=== PATIENT | male | born 1960 | race Caucasian/White ===

== ENCOUNTER 2016-06-24 08:08 | Emergency (ER) | payer BC ==
[~2016-06-24] VITALS: Ht 167.6 cm; Wt 108.0 kg
[2016-06-24 08:15] VITALS: BP 160/85
[2016-06-24] MEDS ORDERED: FISH1000 PO (08:25)
[2016-06-24] MEDS ORDERED: MULT1TAB8 PO (08:25)
[2016-06-24] MEDS ORDERED: VIGA0.02 OD (08:25)
[2016-06-24] MEDS ORDERED: KEFL500C7 PO (08:25)
[2016-06-24] MEDS ORDERED: ASPI325T28 PO (08:25)
[2016-06-24] MEDS ORDERED: CEFTAROLINE FOSAMIL 600 MG in D5W MINI-BAG PLUS 50 ML IV ONE (09:00)
[2016-06-24 10:03] LABS: BASO # 0.1 K/mm3 (0.0-0.2); EOS # 0.4 K/mm3 (0.0-0.50); EOS % 5.8 % (0.0-3.0); LARGE UNSTAINED CELL # 0.2 K/mm3 (0.0-0.4); LARGE UNSTAINED CELL % 2.9 % (0.0-4.0); LYMPH # 3.2 K/mm3 (1.5-4.5); LYMPH % 40.1 % (24.0-44.0); MEAN CORPUSCULAR HEMOGLOBIN 30.6 pg (27.0-33.0); MEAN CORPUSCULAR HGB CONC 35.3 g/dl (32.0-36.5); MEAN CORPUSCULAR VOLUME 86.7 fl (80.0-96.0); MONO # 0.5 K/mm3 (0.0-0.8); MONO % 6.7 % (0.0-5.0); NEUTROPHILS # 3.3 K/mm3 (1.8-7.7); NEUTROPHILS % 43.6 % (36.0-66.0); PLATELET COUNT, AUTOMATED 217 k/mm3 (150-450); RED CELL DISTRIBUTION WIDTH 13.2 % (11.5-14.5); WHITE BLOOD COUNT 7.5 K/mm3 (4.0-10.0)
[2016-06-24 10:14] LABS: ANION GAP 10 MEQ/L (8-16); BLOOD UREA NITROGEN 18 MG/DL (7-18); CARBON DIOXIDE LEVEL 25 MEQ/L (21-32); CHLORIDE LEVEL 103 MEQ/L (98-107); CREATININE FOR GFR 0.87 MG/DL (0.70-1.30); GLOMERULAR FILTRATION RATE > 60.0 (>56); GLUCOSE, FASTING 133 MG/DL (70-105); POTASSIUM SERUM 4.3 MEQ/L (3.5-5.1); SODIUM LEVEL 138 MEQ/L (136-145)
[2016-06-24] MEDS ORDERED: CLEO300C2 PO (10:34)
[2016-06-24] MEDS ORDERED: CLINDAMYCIN 150 MG CAP PO ONE (10:45)
[2016-06-24] MEDS ORDERED: dexameTHASONE 20 MG/5 ML VIAL (J1100) IV ONE (10:45)
== END 2016-06-24 11:05 | disposition home or self-care (01) ==
LOC: M ED 09:40
DX: L03.213 Periorbital cellulitis (principal); H10.9 Unspecified conjunctivitis; Z88.0 Allergy status to penicillin; Z79.899 Other long term (current) drug therapy; Z79.82 Long term (current) use of aspirin; Z79.2 Long term (current) use of antibiotics
CPT/HCPCS: 36415; 80048; 83036; 85025; 86140; 87040; 96365; 96366; 96375; 99282; J1100

== ENCOUNTER → 2018-04-01 | Outpatient (REF) | payer BC ==
[~2018-04-01] MED LIST: ASPI-222 PO; CLEO300C2 PO; FISH1000 PO; KEFL500C17 PO; MULT1TAB8 PO; VIGA0.02 OD
== END ==
LOC: M LAB REF 14:55
PROVIDERS: ATTEND Ophthalmology
DX: B86 Scabies (principal)

== ENCOUNTER → 2018-04-22 | Outpatient (REF) | payer BC | LOC: M SFHCPLAZ 17:20 | PROVIDERS: ATTEND Dermatology | DX: L57.0 Actinic keratosis (principal) ==

== ENCOUNTER → 2022-09-11 | Outpatient (CLI) | payer BC ==
[~2022-09-11] MED LIST changes: -ASPI-222 PO; +ASPI-527 PO
[2022-09-11 10:28] LABS: BASO # 0.1 10^3/uL (0.0-0.2); BASO % 0.9 % (0.0-1.0); EOS # 0.3 10^3/uL (0.0-0.5); EOS % 4.7 % (0.0-3.0); HEMOGLOBIN 13.9 g/dl (13.5-17.5); LYMPH % 42.9 % (24.0-44.0); MEAN CORPUSCULAR HEMOGLOBIN 29.8 pg (27.0-33.0); MEAN CORPUSCULAR HGB CONC 34.8 g/dl (32.0-36.5); MEAN CORPUSCULAR VOLUME 85.7 fl (80.0-96.0); MONO # 0.9 10^3/uL (0.0-0.8); MONO % 12.6 % (2.0-8.0); NEUTROPHILS # 2.7 10^3/uL (1.5-8.5); NEUTROPHILS % 38.8 % (36.0-66.0); PLATELET COUNT, AUTOMATED 204 10^3/uL (150-450); RED BLOOD COUNT 4.67 10^6/uL (4.30-6.10)
[2022-09-11 11:27] LABS: HEMOGLOBIN A1c 5.5 % (4.0-6.0)
[2022-09-11 11:43] LABS: ALBUMIN 4.1 G/DL (3.2-5.2); ALKALINE PHOSPHATASE 85 U/L (46-116); ALT/SGPT 32 U/L (7.0-40); AST/SGOT 23 U/L (<34); BILIRUBIN,TOTAL 0.7 MG/DL (0.3-1.2); BLOOD UREA NITROGEN 22 MG/DL (9-23); CALCIUM LEVEL 9.6 MG/DL (8.3-10.6); CARBON DIOXIDE LEVEL 28 MMOL/L (20-31); CHLORIDE LEVEL 105 MMOL/L (98-107); CHOLESTEROL LEVEL 74 MG/DL (<200); CHOLESTEROL RISK RATIO 2.02 (<5); CREATININE FOR GFR 0.77 MG/DL (0.70-1.30); GLOMERULAR FILTRATION RATE > 60.0 (>49); GLUCOSE, FASTING 102 MG/DL (74-106); HDL CHOLESTEROL 36.6 MG/DL (>40); LDL CHOLESTEROL 24.4 MG/DL (<100); NON-HDL-C 37.4 MG/DL; POTASSIUM SERUM 4.4 MMOL/L (3.5-5.1); SODIUM LEVEL 140 MMOL/L (136-145); TOTAL PROTEIN 6.8 G/DL (5.7-8.2); TRIGLYCERIDES LEVEL 65 MG/DL (<150)
[2022-09-11 11:47] LABS: THYROID STIMULATING HORMONE 0.991 uIU/ML (0.55-4.78)
[2022-09-11 11:48] LABS: FREE T4 1.14 NG/DL (0.89-1.76)
== END ==
LOC: M WUC 08:06
PROVIDERS: ATTEND Family Medicine
DX: E11.59 Type 2 diabetes mellitus with other circulatory complications (principal)

== ENCOUNTER → 2022-09-11 | Outpatient (CLI) | payer BC ==
[2022-09-11 11:24] LABS: ALBUMIN 3.9 G/DL (3.2-5.2); BILIRUBIN,DIRECT 0.3 MG/DL (<0.4); BILIRUBIN,TOTAL 0.7 MG/DL (0.3-1.2); TOTAL PROTEIN 6.8 G/DL (5.7-8.2)
[2022-09-12 13:07] LABS: HEPATITIS C QUANTITATION HCV Not Detected IU/mL (.)
== END ==
LOC: M WUC 08:09
PROVIDERS: ATTEND Internal Medicine Infectious Disease
DX: B18.2 Chronic viral hepatitis C (principal)

== ENCOUNTER → 2023-06-12 | Outpatient (CLI) | payer BC ==
[~2023-06-12] MED LIST changes: +ASPI81TA26 PO; +B-12100010 PO; +BACTDSTA PO; +CEFU1TAB22 PO; +CLOP75TA99 PO; +METO1TAB87 PO; +PRED20TA PO; +REPA140I2 SUBQ; +SEMA0.257 SUBQ; +TOBROPO OS; +VITA400C83 PO
== END ==
LOC: M PLAIMG 14:53
PROVIDERS: ATTEND Family Medicine
DX: C40.21 Malignant neoplasm of long bones of right lower limb (principal)

== ENCOUNTER → 2023-06-14 | Outpatient (CLI) | payer BC ==
[2023-06-17 20:07] LABS: FREE KAPPA LIGHT CHAINS SERUM 26.1 mg/L (3.3-19.4); FREE LAMBDA LIGHT CHAINS SERUM 17.6 mg/L (5.7-26.3); IMMUNOTYPING SERUM IGA SO 131 mg/dL (61-437); IMMUNOTYPING SERUM IGM SO 45 mg/dL (20-172); KAPPA/LAMBDA RATIO SERUM 1.48 (0.26-1.65)
== END ==
LOC: M LAB 14:55
PROVIDERS: ATTEND Ophthalmology
DX: R82.90 Unspecified abnormal findings in urine (principal)